=== PATIENT | female | born 1955 | race Caucasian/White ===

== ENCOUNTER 2017-10-15 02:48 | Observation (INO) | payer OTHER ==
[~2017-10-15] VITALS: Ht 167.6 cm; Wt 86.6 kg
--- NOTE | 2017-10-15 15:37 | Operative Report ---
Operative/Inv Procedure Report Surgery Date: 10/15/17 Name of Procedure: Total vaginal hysterectomy, laparoscopic bilateral salpingo-oophorectomy, cystoscopy Pre-Operative Diagnosis: Simple endometrial hyperplasia Post-Operative Diagnosis: Same, pathology pending Estimated Blood Loss: 550ml Surgeon/Tank Builder: Patrick Doshi MD, M.D., Michael Anesthesia: general endotracheal tube Urine Output: 500 mL clear yellow urine Specimens: Uterus, cervix, bilateral tubes and ovaries Complications: None Condition: Stable Operative Indication: The patient is a 62-year-old para 2 who presented to the office with postmenopausal bleeding. Endometrial biopsy revealed simple endometrial hyperplasia. The patient desired definitive surgical management and removal of both ovaries and tubes. Operative/Procedure Note Note: The patient was taken to the operating room and placed in dorsal supine position. General anesthesia was obtained without difficulty. A TAP block was performed by anesthesia without difficulty. The patient was then placed in dorsal lithotomy position and prepped and draped in the usual sterile fashion. A weighted speculum was placed in the patient's vagina. 2 single-toothed tenacula were applied to the cervix and gentle traction was applied. A circumferential incision of the cervical vaginal mucosa was then made with the Bovie. This allowed sharp and blunt dissection of the vaginal mucosa off of the cervix. The peritoneum was then identified posteriorly, incised and entered. The long weighted speculum was then placed. The uterosacral ligaments were then visualized, clamped, transected and suture ligated with 0 Vicryl. The cervicovesical space was then developed via blunt and sharp dissection. The peritoneum was then sharply entered anteriorly. The cardinal ligaments were then visualized, clamped, transected and suture ligated with 0 Vicryl. The uterine arteries were then identified, clamped, transected and suture ligated with 0 Vicryl. The utero ovarian artery and vein complex was then visualized, clamped, transected, free tied and suture ligated with 0 Vicryl. Excellent hemostasis was noted of all pedicles. Neither ovary nor fallopian tube was visualized in the pelvis. Decision was then made to close the vaginal cuff and proceed with the bilateral salpingo-oophorectomy oophorectomy via laparoscopy. The uterosacral ligaments were then tied together and the vaginal mucosa was then closed in a running fashion from the 12:00 to the 6 o'clock position excellent hemostasis was noted. Attention was then turned to the patient's abdomen for laparoscopy. Quarter percent Marcaine was injected into the umbilicus. A 5 mm skin incision was then made with the scalpel and the varies needle was carefully inserted into the patient's abdomen while tenting the anterior abdominal wall. The water drop test confirmed placement in the abdomen as did the low pressure upon attachment of the CO2 gas. The varies needle was then removed and the 5 mm trocar was inserted under direct visualization with the Visiport. Survey of the patient's pelvis revealed an absent uterus a small left simple ovarian cyst and small left ovary. The right ovary and tube were noted to be small and somewhat adherent to the right pelvic sidewall. Filmy adhesions of the omentum were also noted to the right anterior lateral pelvic sidewall. Normal upper abdomen was noted. The left lower quadrant incision was then made after injecting Marcaine and a 5 mm trocar was inserted under direct visualization. The right lower quadrant incision was then made with the scalpel after injecting Marcaine and an 11 mm trocar was inserted under direct visualization. Bilateral ureters were identified along the pelvic sidewall. Using the LigaSure device attention was then turned to the left infundibulopelvic ligament which was serially grasped, cauterized, and transected to remove the left ovary and tube. The same method was then used to excise the right ovary and fallopian tube with the LigaSure device. Both specimens were removed with the Endo Catch bag. Excellent hemostasis was noted. Copious irrigation of the patient's abdomen was performed and once again excellent hemostasis was noted. All instruments were then removed from the patient's abdomen. Attention was then returned to the patient's bladder. The Hill catheter was removed and the cystoscope was then inserted into the patient 's bladder. Bilateral ureteral jets were noted to be functioning normally. No defects were noted in the bladder wall. The cystoscope was then removed from the patient's bladder and the Hill catheter was reinserted. The patient tolerated the procedure well. All counts were reported to be correct 2. The patient was taken to the recovery room in stable condition. Findings: Normal appearing uterus, fallopian tubes and ovaries bilaterally Discharge Disposition: PACU
--- NOTE | 2017-10-16 07:18 | PN- OBGYN ---
Surgical Brief Attending Note Brief Attending Note: PT FEELING WELL. PINEDA STILL IN SITU, HAS NOT YET AMBULATED. NO GALICIA / CP / SOB. NO N/V. +NGHIA PO REG. PAIN WELL CONTROLLED W/ MOTRIN. AFEB, V/SS, ADEQUATE UO - CLR YELLOW NAD RRR CTA ABD SOFT NT ND INC C/D/I (FROM L/S) DAVID MIN VB - DK RED EXT NT NO ED, SCD'S ON CHEM 7 WNL CBC PENDING A/P POD 1 S/P TVH / L/S BSO FOR EM HYPERPLASIA, DOING WELL -D/C PINEDA -VOID CHECK -F/U AM CBC -ENC OOB / AMB -ANT D/C HOME TODAY W/ F/U IN OFFICE 2 WKS
[2017-10-16] MEDS ORDERED: IBUPROFEN800 M1 PO (07:20)
[2017-10-16] MEDS ORDERED: PERCOCET 5-3251 EACH PO (07:20)
[2017-10-16 08:38] LABS: ABSOLUTE BASOPHIL COUNT 0 /CUMM (0.0-0.2); ABSOLUTE EOSINOPHIL COUNT 0 /CUMM (0.0-0.7); ABSOLUTE GRANULOCYTE CT 6.9 /CUMM (1.4-6.5); ABSOLUTE LYMPH COUNT 2.6 /CUMM (1.2-3.4); ABSOLUTE MONOCYTE COUNT 0.7 /CUMM (0.10-0.60); BASOPHIL % 0.2 % (0.0-2.0); EOSINOPHIL % 0.1 % (0-5); MEAN CORPUSCULAR HGB 29.4 PG (27.0-31.0); MEAN CORPUSCULAR HGB CONC 34.3 G/DL (33.0-37.0); MEAN CORPUSCULAR VOLUME 85.5 FL (81.0-99.0); MEAN PLATELET VOLUME 8.3 FL (7.4-10.4); PLATELET COUNT 257 /CUMM (130-400); RBC DISTRIBUTION WIDTH 14.2 % (11.5-14.5)
[2017-10-16 09:23] LABS: HEMATOCRIT 29.4 % (37-47); RED BLOOD CELL CT 3.44 /CUMM (4.20-5.40); WHITE BLOOD CELL COUNT 10.1 /CUMM (4.8-10.8)
[2017-10-16 09:24] LABS: GRANULOCYTE % 67.8 % (42.2-75.2)
[2017-10-16 10:33] VITALS: BP 120/70
== END 2017-10-16 10:45 ==
LOC: STS 02:48 → PACUH 10:46 → ENRESERV 11:50 → ENTRNSPT 12:41 → EDTRNSPTSTS 12:52 → EDTRNSPT 12:52 → GNO 13:02 → CMPTRNSPT 13:10 → GNO 10-16 10:45
PROVIDERS: Obstetrics & Gynecology
DX: N80.0 Endometriosis of uterus (principal); N84.0 Polyp of corpus uteri; D25.9 Leiomyoma of uterus, unspecified; R10.9 Unspecified abdominal pain
CPT/HCPCS: 82436; 88309; C9399; J0131; J0690; J1885; J2405